=== PATIENT | male | born 1985 | race Caucasian/White ===

== ENCOUNTER 2017-06-13 12:57 | Emergency (ER) | payer OTHER ==
[~2017-06-13] VITALS: Ht 167.6 cm; Wt 77.1 kg
[~2017-06-13 12:57] MED LIST: IBUP800T19 PO; NAPR-514 PO; TRAM50TA PO
[2017-06-13] MEDS ORDERED: DIPHTH,PERTUSS(ACELL),TET TOX 0.5 ML DISP.SYRIN. VAX IM ONE (14:00)
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
[2017-06-13 16:00] VITALS: BP 135/90
[2017-06-14 07:12] LABS: HCV ANTIBODY <0.1 s/co ratio (0.0-0.9); HEP A IGM ABDY Negative (Negative)
== END 2017-06-13 15:10 | disposition home or self-care (01) ==
LOC: ER 12:57
DX: Z77.21 Contact with and (suspected) exposure to potentially hazardous body fluids (principal)
CPT/HCPCS: 36415; 80074; 86703; 90471; 90715; 99284-25

== ENCOUNTER 2017-07-04 12:29 | Emergency (ER) | payer OTHER ==
[~2017-07-04] VITALS: Ht 167.6 cm; Wt 78.5 kg
[2017-07-04 12:41] VITALS: BP 161/76
[2017-07-04] MEDS ORDERED: IBUPROFEN 600 MG TABLET. PO ONE (12:45)
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
== END 2017-07-04 13:14 | disposition home or self-care (01) ==
LOC: ER 12:29
DX: S69.92XA Unspecified injury of left wrist, hand and finger(s), initial encounter (principal); F41.9 Anxiety disorder, unspecified; X58.XXXA Exposure to other specified factors, initial encounter; Y93.89 Activity, other specified; Y99.8 Other external cause status; Y92.89 Other specified places as the place of occurrence of the external cause
CPT/HCPCS: 73110; 73130; 99284

== ENCOUNTER 2018-03-25 10:32 | Emergency (ER) | payer OTHER ==
[2018-03-25 10:50] VITALS: BP 140/94
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
== END 2018-03-25 11:13 | disposition home or self-care (01) ==
LOC: ER 10:32
DX: Z77.21 Contact with and (suspected) exposure to potentially hazardous body fluids (principal); F41.9 Anxiety disorder, unspecified; F17.210 Nicotine dependence, cigarettes, uncomplicated
CPT/HCPCS: 86703; 86705; 86709; 86803; 87340; 99283

== ENCOUNTER 2018-09-11 07:16 | Emergency (ER) | payer OTHER ==
[~2018-09-11] VITALS: Ht 167.6 cm; Wt 83.9 kg
[2018-09-11 07:23] VITALS: BP 141/101
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
== END 2018-09-11 07:38 | disposition home or self-care (01) ==
LOC: ER 07:16
DX: Z77.21 Contact with and (suspected) exposure to potentially hazardous body fluids (principal); I10 Essential (primary) hypertension; F17.210 Nicotine dependence, cigarettes, uncomplicated
CPT/HCPCS: 86703; 86705; 86709; 86803; 87340; 99284

== ENCOUNTER 2020-06-25 12:38 | Emergency (ER) | payer OTHER ==
[~2020-06-25] VITALS: Ht 167.6 cm; Wt 78.5 kg
[2020-06-25] MEDS ORDERED: HYDROmorphone PF 1 MG/ML DISP.SYRIN IVP ONE (13:45)
--- NOTE | 2020-06-25 14:21 | RAD ---
Left shoulder 3 views, left RIBS with PA chest. HISTORY: Fall Left shoulder 3 views of the left shoulder show no evidence of an acute fracture or osseous abnormality. There is n o dislocation at the shoulder. Left shoulder with PA chest PA view was taken of the chest. There is no pneumothorax or pleural effusion. Lungs are clear. Heart is normal in size. Mediastinum is not widened. AP and oblique views were taken of the left ribs. There is no rib fracture or acute osseous abnormali ty. There is a calcification the left upper quadrant of the abdomen, a renal calculus is possible. IMPRESSION: 1. No fracture or dislocation noted in the left shoulder. 2. No acute chest disease. 3. No left rib fracture noted. 4. Possible left renal calculus. Electronically signed by: Que Corral MD (06/25/2020 2:18 PM) [facility]
--- NOTE | 2020-06-25 14:24 | RAD ---
STUDY: 1. CT head without contrast 2. CT cervical spine without contrast INDICATION: Fall COMPARISON: None available TECHNIQUE: Axial CT imaging of the head and cervical spine performed without the use of intravenous contrast. Sagittal and coronal reformats were obtained. One or more of the following individualized dose reduction techniques were utilized for this examinat ion: 1. Automated exposure control 2. Adjustment of the mA and/or kV according to patient size 3. Use of iterative reconstruction technique. FINDINGS: CT HEAD: The ventricles are midline without evidence of septation. Normal pearce-white differentiation is mainta ined. There is no extra axial fluid collection, intraparenchymal hemorrhage, mass or acute infarct.. There is mucoperiosteal thickening in the bilateral maxillary and ethmoid air cells. The visualized o rbits and the mastoid air cells are clear. CT CERVICAL SPINE: Normal sagittal alignment is preserved. The vertebral body heights and intervertebral disc spaces are maintained. There is no acute compression fracture. No prevertebral soft tissue swelling is identifi ed. The airway is preserved the visualized thyroid gland appears normal. The lung apices are clear. IMPRESSION: CT HEAD: 1. No acute intracranial process detected. CT CERVICAL SPINE: 1. No acute abnormality seen in the CT cervical spine. Electronically signed by: Che Mccarthy MD (06/25/2020 2:21 PM) [facility]
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
[2020-06-25] MEDS ORDERED: HYDROcodone/APAP 5/325MG 1 TAB TABLET PO ONE (15:15)
[2020-06-25] MEDS ORDERED: HYDR-2155 PO (15:24)
[2020-06-25] MEDS ORDERED: IBUP600T16 PO (15:24)
[2020-06-25] MEDS ORDERED: CYCL-331 PO (15:24)
[2020-06-25 15:30] VITALS: BP 149/91
== END 2020-06-25 15:44 | disposition home or self-care (01) ==
LOC: ER 12:38
DX: S40.012A Contusion of left shoulder, initial encounter (principal); S20.212A Contusion of left front wall of thorax, initial encounter; I10 Essential (primary) hypertension; F17.210 Nicotine dependence, cigarettes, uncomplicated; W18.00XA Striking against unspecified object with subsequent fall, initial encounter; Y93.18 Activity, surfing, windsurfing and boogie boarding; Y92.89 Other specified places as the place of occurrence of the external cause; Y99.8 Other external cause status
CPT/HCPCS: 70450; 71101; 72125; 73030; 96374; 96375; 99285; J1170; J3010

== ENCOUNTER 2020-09-01 09:25 | Emergency (ER) | payer OTHER ==
[~2020-09-01] VITALS: Ht 167.6 cm; Wt 90.4 kg
[~2020-09-01 09:25] MED LIST changes: +CYCL-331 PO; +HYDR-2155 PO; +IBUP600T16 PO
[2020-09-01] MEDS ORDERED: RALTEGRAVIR 400 MG TABLET. PO SCH (10:30)
[2020-09-01 10:37] LABS: BASO # 0.2 x10^3/uL (0.0-0.2); BASO % 1 % (0-3); EOS # 0.7 x10^3/uL (0.0-0.7); EOS % 4 % (0-3); HEMATOCRIT 44.3 % (39.0-53.0); HEMOGLOBIN 15.1 g/dL (13.0-17.5); LYMPH # 4.5 x10^3/uL (1.0-4.8); LYMPH % 30 % (24-48); MEAN CORPUSCULAR HEMOGLOBIN 31 pg (25-35); MEAN CORPUSCULAR HGB CONC 34 g/dL (31-37); MEAN CORPUSCULAR VOLUME 92 fL (79-100); MONO # 1.8 x10^3/uL (0.0-1.1); MONO % 12 % (0-9); NEUT # 8.1 x10^3uL (1.8-7.7); NEUT % 53 % (31-73); PLATELET COUNT 375 x10^3/uL (140-400); RED BLOOD COUNT 4.82 x10^6/uL (4.30-5.70); RED CELL DISTRIBUTION WIDTH 13.7 % (11.5-14.5); WHITE BLOOD COUNT 15.3 x10^3/uL (4.0-11.0)
[2020-09-01 10:40] LABS: CALCIUM 9.8 mg/dL (8.5-10.1); CREATININE 1.4 mg/dL (0.7-1.3)
[2020-09-01] MEDS ORDERED: EMTRICITAB/TENOFOVIR 200/300MG TABLET. PO ONE (10:45)
[2020-09-01 11:09] LABS: % ATYL 12 % (0-0); % BANDS 3 % (0-9); % EOS 7 % (0-5); % LYMPHS 23 % (24-48); % MONOS 12 % (0-10); % SEGS 43 % (35-66)
[2020-09-01 11:11] LABS: PLT ESTIMATE INCREASED (ADEQUATE); SMUDGE CELLS PRESENT
[2020-09-01] MEDS ORDERED: ONDA4TAB12 PO (11:28)
[2020-09-01] MEDS ORDERED: RALT400T PO (11:28)
[2020-09-01] MEDS ORDERED: EMTR1TAB8 PO (11:28)
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
[2020-09-01 11:40] VITALS: BP 166/70
== END 2020-09-01 11:36 | disposition home or self-care (01) ==
LOC: ER 09:25
DX: R94.4 Abnormal results of kidney function studies (principal); I10 Essential (primary) hypertension; F17.210 Nicotine dependence, cigarettes, uncomplicated; Z77.21 Contact with and (suspected) exposure to potentially hazardous body fluids
CPT/HCPCS: 36415; 80048; 85007; 85025; 86703; 86704; 86706; 86803; 87340; 99283